=== PATIENT | female | born 1945 | race Hispanic/Latino ===

== ENCOUNTER → 2017-03-19 | Outpatient (CLI) | payer OTHER ==
[~2017-03-19] MED LIST: ASPI-1181 PO; ATOR-2 PO; CLOP75TA14 PO; LEVO100T12 PO; LOSA1TAB54 PO; METO-408 PO; MULT-1250 PO; SOLI5 PO
== END | disposition home or self-care (01) ==
LOC: DTH 09:04
PROVIDERS: ATTEND Surgery
DX: E11.9 Type 2 diabetes mellitus without complications (principal); E66.09 Other obesity due to excess calories
CPT/HCPCS: 97803

== ENCOUNTER 2017-07-05 12:00 | Inpatient (IN) | payer OTHER ==
[~2017-07-05] VITALS: Ht 157.5 cm; Wt 94.3 kg
[2017-07-05 10:20] VITALS: BP 157/67
[2017-07-05 10:27] LABS: BASOPHILS % (AUTO) 0.9 % (0.0-5.0); EOSINOPHILS % (AUTO) 4.3 % (0.0-8.0); HEMATOCRIT 39.6 % (36-48); LYMPHOCYTES % (AUTO) 34.3 % (21.0-51.0); MEAN CORPUSCULAR HEMOGLOBIN 33.2 pg (27.0-33.0); MEAN CORPUSCULAR HGB CONC 35.2 g/dL (32.0-36.0); MEAN CORPUSCULAR VOLUME 94.2 fL (79-99); MONOCYTES % (AUTO) 6.4 % (3.0-13.0); NEUTROPHILS % (AUTO) 54.1 % (40.0-77.0); PLATELET COUNT (AUTO) 266 K/uL (130-400); RED CELL DISTRIBUTION WIDTH 13.3 % (11.0-15.5); WHITE BLOOD COUNT (AUTO) 6.9 K/uL (4.8-10.8)
[2017-07-05 10:34] LABS: CREATININE 0.7 mg/dL (0.5-1.5); POTASSIUM 3.7 mmol/L (3.5-5.1)
[2017-07-05 10:41] LABS: INR 0.98 (0.85-1.15); PARTIAL THROMBOPLASTIN TIME 26.4 SEC (26.3-35.5); PROTHROMBIN TIME 10.3 SEC (9.6-11.6)
[2017-07-05] MEDS ORDERED: CEFAZOLIN SODIUM 1 GM VIAL IVP SCH (13:00)
[2017-07-05] MEDS ORDERED: SODIUM CHLORIDE 0.9% 1000ML 1,000 ML IV SCH (13:00)
[2017-07-12] VITALS (20 sets, daily range): BP systolic 84–117; BP diastolic 37–71
[2017-07-12] MEDS: CEFAZOLIN SODIUM 1 GM VIAL ONE ×2 (07:34→11:31)
[2017-07-12] MEDS ORDERED: LACTATED RINGERS 1000ML 1,000 ML IV ONE (07:34)
[2017-07-12] MEDS ORDERED: PROPOFOL 10 MG/ML 20ML VIAL IV ONE (11:16)
[2017-07-12] MEDS ORDERED: LIDOCAINE PF 2% 5ML ABBOJECT ONE (11:16)
[2017-07-12] MEDS ORDERED: DEXAMETHASONE SOD PHOSPHATE 10MG/ML 1ML VIAL ONE (11:16)
[2017-07-12] MEDS ORDERED: NEOSTIGMINE 5MG/5ML SYR IV ONE (11:16)
[2017-07-12] MEDS ORDERED: GLYCOPYRROLATE 0.2 MG/ML 5 ML VIAL ONE (11:16)
[2017-07-12] MEDS ORDERED: MIDAZOLAM HCL 1 MG/ML 2ML VIAL ONE (11:17)
[2017-07-12] MEDS ORDERED: FENTANYL CITRATE PF 50 MCG/1 ML 2ML VIAL ONE ×2 (11:17→11:57)
[2017-07-12] MEDS ORDERED: BUPIVACAINE/PF 0.5% 30ML VIAL ONE (12:00)
[2017-07-12] MEDS ORDERED: MORPHINE SULFATE 5 MG/ML VIAL IVP PRN (12:15)
[2017-07-12] MEDS ORDERED: METOPROLOL TARTRATE 1 MG/ML 5ML VIAL IV PRN (12:15)
[2017-07-12] MEDS: CEFAZOLIN SODIUM 1 GM VIAL IVP SCH ×2 (12:30→20:32)
[2017-07-12] MEDS ORDERED: MEPERIDINE-PF 25 MG/ML SYG ONE (12:47)
[2017-07-12] MEDS: LACTATED RINGERS 1000ML 1,000 ML IV SCH ×2 (13:53→22:59)
[2017-07-12] MEDS: FAMOTIDINE/PF 20 MG/2 ML VIAL IV SCH (20:32)
[2017-07-12] MEDS: ENOXAPARIN SODIUM 30 MG/0.3 ML SQ SCH (20:33)
[2017-07-12] MEDS: ONDANSETRON HCL 4 MG/2 ML VIAL IVP PRN (22:59)
[2017-07-13 00:47] VITALS: BP 140/72
[2017-07-13] MEDS: LACTATED RINGERS 1000ML 1,000 ML IV SCH ×4 (04:14→20:24)
[2017-07-13 04:40] VITALS: BP 125/60
[2017-07-13] MEDS ORDERED: CEFAZOLIN SODIUM 1 GM VIAL ONE (05:26)
[2017-07-13 05:30] LABS: BASOPHILS % (AUTO) 0.5 % (0.0-5.0); EOSINOPHILS % (AUTO) 0.1 % (0.0-8.0); HEMATOCRIT 34.8 % (36-48); LYMPHOCYTES % (AUTO) 16.5 % (21.0-51.0); MEAN CORPUSCULAR HGB CONC 35.2 g/dL (32.0-36.0); MEAN CORPUSCULAR VOLUME 93.6 fL (79-99); MONOCYTES % (AUTO) 6.8 % (3.0-13.0); NEUTROPHILS % (AUTO) 76.1 % (40.0-77.0); PLATELET COUNT (AUTO) 238 K/uL (130-400); RED BLOOD CELL COUNT(AUTO) 3.71 MIL/uL (4.00-5.50); RED CELL DISTRIBUTION WIDTH 13.3 % (11.0-15.5); WHITE BLOOD COUNT (AUTO) 10.6 K/uL (4.8-10.8)
[2017-07-13] MEDS: CEFAZOLIN SODIUM 1 GM VIAL IVP SCH (05:34)
[2017-07-13 05:38] LABS: CREATININE 1.2 mg/dL (0.5-1.5); POTASSIUM 3.1 mmol/L (3.5-5.1)
[2017-07-13] MEDS ORDERED: ONDANSETRON HCL MDV 20ML 2 MG/ML VIAL ONE (05:52)
[2017-07-13] MEDS: ONDANSETRON HCL 4 MG/2 ML VIAL IVP PRN (05:54)
[2017-07-13 07:43] VITALS: BP 133/60
[2017-07-13] MEDS ORDERED: DIATR MEGLU/DIATRIZOATE SODIUM 30 ML BOTTLE ONE ×2 (08:07→09:00)
[2017-07-13] MEDS ORDERED: LIDOCAINE HCL-MPF 1% 2ML VIAL IVP PRN (08:15)
[2017-07-13] MEDS ORDERED: POTASSIUM CHLORIDE 20 MEQ ERTAB PO PRN ×2 (08:15)
[2017-07-13] MEDS ORDERED: POTASSIUM CHLORIDE 20MEQ/100ML 100 ML IV PRN (08:15)
[2017-07-13] MEDS ORDERED: POTASSIUM CHLORIDE 10% ELIXIR 20 MEQ/15 ML UDCUP PO PRN ×2 (08:15)
[2017-07-13] MEDS ORDERED: ONDANSETRON HCL MDV 20ML 2 MG/ML VIAL IVP PRN (08:30)
[2017-07-13] MEDS: FAMOTIDINE/PF 20 MG/2 ML VIAL IV SCH ×2 (09:42→20:16)
[2017-07-13] MEDS: LIDOCAINE HCL-MPF 1% 2ML VIAL IVP PRN ×2 (09:43→20:17)
[2017-07-13] MEDS: ENOXAPARIN SODIUM 30 MG/0.3 ML SQ SCH ×2 (09:43→20:18)
[2017-07-13] MEDS: POTASSIUM CHLORIDE 20MEQ/100ML 100 ML IV PRN ×3 (09:43→20:17)
[2017-07-13 10:53] VITALS: BP 132/58
[2017-07-13] MEDS ORDERED: MORPHINE SULFATE 4 MG/1ML SYG IVP PRN (13:45)
[2017-07-13] MEDS ORDERED: ACETAMINOPHEN-CODEINE ELIXIR 5 ML UDCUP PO PRN (13:45)
[2017-07-13 16:35] VITALS: BP 116/67
[2017-07-13 19:08] VITALS: BP 140/70
[2017-07-14] MEDS: POTASSIUM CHLORIDE 20MEQ/100ML 100 ML IV PRN (00:15)
[2017-07-14 00:25] VITALS: BP 143/79
[2017-07-14 04:59] VITALS: BP 141/68
[2017-07-14 07:47] VITALS: BP 128/77
[2017-07-14] MEDS: FAMOTIDINE/PF 20 MG/2 ML VIAL IV SCH (09:07)
[2017-07-14] MEDS: ENOXAPARIN SODIUM 30 MG/0.3 ML SQ SCH (09:08)
== END 2017-07-14 12:00 | disposition home or self-care (01) | DRG 621 ==
LOC: EDSTATUS 12:00 → DAHIP 07-12 06:43 → 4AH 07-12 13:10
PROVIDERS: ADMIT Surgery; ATTEND Surgery
PROC: 0DB64Z3 Excision of Stomach, Percutaneous Endoscopic Approach, Vertical (ICD-10-PCS; principal; 2017-07-12 11:17)
PROC: 0DJ08ZZ Inspection of Upper Intestinal Tract, Via Natural or Artificial Opening Endoscopic (ICD-10-PCS; 2017-07-12 11:17)
DX: E66.01 Morbid (severe) obesity due to excess calories (principal); I10 Essential (primary) hypertension; I25.10 Atherosclerotic heart disease of native coronary artery without angina pectoris; Z96.652 Presence of left artificial knee joint; Z68.38 Body mass index [BMI] 38.0-38.9, adult; Z88.1 Allergy status to other antibiotic agents
CPT/HCPCS: 36415; 74240; 80048; 84132; 85025; 85610; 85730; 86850; 86900; 86901; 88307; 93005; 94760; A4218; A4606; J0690; J1100; J1650; J2001; J2175; J2250; J2704; J2710; J3010; J3480; J3490; J7030; J7120; Q9963

== ENCOUNTER → 2017-07-05 | Outpatient (CLI) | payer OTHER | END | disposition home or self-care (01) | LOC: DTH 08:06 | PROVIDERS: ATTEND Surgery | DX: E11.9 Type 2 diabetes mellitus without complications (principal); E66.09 Other obesity due to excess calories | CPT/HCPCS: 97803 ==